=== PATIENT | female | born 1955 | race Caucasian/White ===

== ENCOUNTER 2016-11-21 20:50 | Inpatient (IN) | payer MEDICARE, OTHER ==
[~2016-11-21] VITALS: Ht 177.8 cm; Wt 92.4 kg
--- NOTE | ~2016-11-21 | HEMODYNAMI ---
PATIENT:ABISAI ELY MEDICAL RECORD: [id number] : 53 [id number] ADMISSION DATE: 11/22/16 Generatedon:11/23/20169:09 Patient name: ABISAI ELY Patient #: [id number] SSN: : 1955 Date of study: 11/23/2016 Page: Of Hemodynamic Procedure Report Patient Data Patient Demographics Procedure consent was obtained First Name: ABISAI Gender: Female Last Name: SOLIS : 1955 Patient #: [id number] Age: 61 year(s) Race: Unknown Additional ID: [id number] Contact details [address]: [address] [place] [address] State: [place] City: [place] Zip code: [address] Past Medical History Allergies Allergen Reaction Date Comments Reported Penicillins 11/23/2016 Admission Admission Data Admission Date: 11/22/2016 Admission Time: 0:51 Room #: D.2117 Height (in.): 70 BSA: 2.1 (m2) Height (cm.): 177.8 BMI: 28.99 (kg/m2) Weight (lbs.): 202.01 Weight (kg.): 91.63 Lab Results Lab Result Date: 11/23/2016 Lab Result Time: 0:00 Biochemistry Name Units Result Min Max BUN mg/dl 22 --(----)-* 7 18 Creatinine mg/dl 0.7 --(*---)-- 0.6 1.3 CBC Name Units Result Min Max Hemoglobin g/dl 13 -*(----)-- 13.5 17.5 Procedure Procedure Types Cath Procedure Diagnostic Procedure [facility] w/Coronaries FFR/IVUS Intra-Coronary IVUS Initial PCI Procedure Coronary Stent Initial Miscellaneous Procedures Moderate Sedation up to 30 minutes Procedure Description Procedure Date Procedure Date: 11/23/2016 Procedure Start Time: 8:43 Procedure End Time: 9:00 Procedure Staff Name Function Waqar Pruitt MD Performing Physician Segun ELLISON Scrub Meagan Carney RN Nurse Segun Diaz RT Feed Manager Shiraz Parra RT Monitor Procedure Data Cath Procedure Fluoroscopy Diagnostic fluoroscopy Total fluoroscopy Time: 3.4 time: 3.4 min min Diagnostic fluoroscopy Total fluoroscopy dose: 603 dose: 603 mGy mGy Contrast Material Contrast Material Type Amount (ml) Isovue 300 111 Entry Location Entry Primary Successful Side Size Upsize Upsize Entry Closure Succes sful Closure Location (Fr) 1 (Fr) 2 (Fr) Remarks Device Remarks Femoral Right 5 Fr 6 Fr Exoseal artery Short Diagnostic catheters Device Type Used For End Catheter Placement Cordis 5Fr Pigtail LV Angiography Catheter (MP) Cordis 5Fr JL 4.0 Left Coronary Catheter (MP) Angiography Cordis 5Fr 3DRC Catheter Right Coronary (MP) Angiography Procedure Complications No complications Procedure Medications Medication Administration Route Dosage Versed I.V. 1 mg Heparin Bolus 4000 units Integrilin (Bolus I.V. 8.5 ml 2mg/ml) Fentanyl I.V. 50 mcg Fentanyl I.V. 50 mcg Versed I.V. 1 mg Oxygen NC 2 l/min Heparin Flush Bag added to field 2 bags (1000units/500ml NS) Lidocaine 2% added to field 20 Plavix P.O. 600 mg Hemodynamics Rest BSA: 2.1 (m2) HGB: 13 (g/dl) O2 Consumption: Estimated: 203.7 (ml/min) O2 Consum ption indexed: Estimated:97 (ml/min/m) Heart Rate: 77 (bpm) Snapshots Pre Cath Intra NCS Post Cath Vital Signs Time Heart Resp SPO2 NIBP Rhythm Pain Sedation Rate (ipm) (%) (mmHg) Status Level (bpm) 8:18:11 74 22 96 113/62(87) A-Flutter 0 (11) 10(A) , No pain 8:22:21 83 16 94 126/67(96) A-Flutter 0 (11) 10(A) , No pain 8:26:28 82 14 95 113/64(87) A-Flutter 0 (11) 10(A) , No pain 8:30:42 78 13 95 94/52(70) A-Flutter 0 (11) 10(A) , No pain 8:34:44 76 14 96 91/67(81) A-Flutter 0 (11) 10(A) , No pain 8:38:45 86 16 95 103/66(79) A-Flutter 0 (11) 9(A) , No pain 8:42:51 89 16 96 97/67(76) A-Flutter 0 (11) 9(A) , No pain 8:46:55 73 14 96 105/63(85) A-Flutter 0 (11) 9(A) , No pain 8:51:01 101 14 95 102/61(77) A-Flutter 0 (11) 9(A) , No pain 8:55:08 111 15 96 101/57(94) A-Flutter 0 (11) 9(A) , No pain 8:59:16 69 15 96 106/58(79) A-Flutter 0 (11) 10(A) , No pain Medications Time Medication Route Dose Verified Delivered Reason Notes Effectiveness by by 8:08:25 Oxygen NC 2 Waqar Meagan Per physician l/min Sonal Carney RN 8:08:28 Heparin Flush added 2 Waqar Waqar used for Bag to bags Sonal Pruitt MD procedure (1000units/500ml field NS) 8:08:42 Lidocaine 2% added 20ml Waqar Waqar used for to vial Sonal Pruitt MD procedure field 8:33:00 Versed I.V. 1 mg Waqar Meagan for sedation Sonal Carney RN 8:33:12 Fentanyl I.V. 50 Waqar Meagan for sedation mcg Sonal Carney RN 8:36:04 Fentanyl I.V. 50 Waqar Meagan for sedation mcg Sonal Carney RN 8:36:15 Versed I.V. 1 mg Waqar Meagan for sedation Sonal Carney RN 8:49:31 Heparin Bolus 4000 Waqar Meagan for dose units Sonal Carney RN anticoagulation verified wtih dr pruitt 8:52:07 Integrilin I.V. 8.5 Waqar Meagan for 1.5 ml (Bolus 2mg/ml) ml Sonal Carney RN antiplatelet wasted therapy 9:04:27 Plavix P.O. 600 Waqar Meagan for mg Sonal Carney RN antiplatelet therapy Procedure Log Time Note 8:07:33 Diagnostic Cath status Elective 8:07:36 Segun Diaz RT(R) sent for patient. Start room use. 8:07:38 Time tracking: Regular hours 8:07:44 Plan of Care:Hemodynamics will remain stable., Cardiac rhythm will remain stable., Comfort level will be maintained., Respiratory function will remain adequate., Patient/ family verbilizes understanding of procedure., Procedure tolerated without complication., Recovers from procedure without complications.. 8:08:04 Patient received from Med II to [facility] 2 Alert and oriented. Tansferred to table in Supine position. 8:08:12 Warm blankets applied, and jenae hugger turned on for patient comfort. 8:08:12 Correct patient and procedure confirmed by team. 8:08:15 Signed procedure consent form obtained from patient. 8:08:25 Oxygen 2 l/min NC was given by Meagan Carney RN; Per physician; 8:08:28 Heparin Flush Bag (1000units/500ml NS) 2 bags added to field was given by Waqar Pruitt MD; used for procedure; 8:08:42 Lidocaine 2% 20ml vial added to field was given by Waqar Pruitt MD; used for procedure; 8:09:14 H&P Date Dictated: 11/22/2016 Within 30 days and on chart.. 8:09:15 Pre-procedure instructions explained to patient. 8:09:23 Family unavailable. 8:09:27 Patient NPO since Midnight. 8:10:54 Patient diabetic? No. 8:10:59 Snore? No 8:11:00 Sleep apnea? No 8:11:37 Patient pain scale 7/10 lt shoulder. 8:11:55 IV patent on arrival in right hand with 0.9% NaCl at KVO. 8:12:02 Lab results completed and on chart. 8:12:12 Right Radial & Right Groin area was prepped with chlora-prep and draped in sterile fashion 8:12:14 Alarms reviewed by R. N. 8:12:15 Sharps counted by scrub and verified by R.N. 8:12:17 Physician paged 8:14:07 Patient Height : 177.8 inches 8:14:17 Patient Weight : 91.63 lbs 8:14:59 Lab Result : Hemoglobin 13 g/dl 8:14:59 Lab Result : Creatinine 0.7 mg/dl 8:14:59 Lab Result : BUN 22 mg/dl 8:15:28 ECG and BP/O2 sat monitors applied to patient. 8:17:02 Vital chart was started 8:17:11 Baseline sample Acquired. 8:17:54 Full Disclosure recording started 8:18:27 Rhythm: atrial flutter 8:21:54 Baseline sample Acquired. 8:22:02 Patient allergic to Penicillins 8:22:04 Is the patient allergic to Iodine/contrast media? No. 8:22:07 Is patient on blood thinner?Unknown 8:22:28 pt states that she is not on any blood thinner 8:22:31 ----Pre-sedation anethsthesia assessment.---- 8:22:32 Previous problem with sedation/anesthesia? No ? 8:22:34 Deviated septum? No 8:22:35 Opens mouth fully? Yes 8:22:36 Sticks out tongue? Yes 8:22:37 Airway obstruction? No ? 8:22:40 Dentures? No ? 8:22:43 Pre procedure: right dorsailis pedis pulse 1+ Palpable, but thready & weak; easily obliterated 8:32:52 --------ALL STOP TIME OUT------ 8:32:52 Final Timeout: patient, procedure, and site verified with staff and physician. All members of the team are in agreement. 8:32:55 Right groin site verified by team. 8:32:58 Physical assessment completed. ASA score P 2 - A patient with mild systemic disease as per Waqar Pruitt MD. 8:33:00 Versed 1 mg I.V. was given by Meagan Carney RN; for sedation; 8:33:02 Sedation plan: IV Moderate Sedation Versed, Fentanyl 8:33:12 Fentanyl 50 mcg I.V. was given by Meagan Carney RN; for sedation; 8:36:04 Fentanyl 50 mcg I.V. was given by Meagan Carney RN; for sedation; 8:36:15 Versed 1 mg I.V. was given by Meagan Carney RN; for sedation; 8:42:41 Use device set Femoral Dx 8:42:42 Acist Syringe opened to sterile field. 8:42:44 Bag Decanter opened to sterile field. 8:42:44 Medline Cath Pack opened to sterile field. 8:42:44 Terumo 5Fr [place] Sheath opened to sterile field. 8:42:46 St David 260cm J .035 wire opened to sterile field. 8:42:47 Acist Hand Control opened to sterile field. 8:42:47 Acist Manifold opened to sterile field. 8:42:47 Diagnostic Infinity 5Fr Multipack catheter opened to sterile field. 8:42:48 Tegaderm 4 x 4 opened to sterile field. 8:42:51 Procedure started. 8:43:07 Local anesthetic to right femoral artery with Lidocaine 2% by Waqar Pruitt MD.INITIAL ACCESS ONLY 8:43:15 A 5 Fr sheath was inserted into the Right Femoral artery 8:44:17 A Cordis 5Fr Pigtail Catheter (MP) was advanced over the wire and used for LV Angiography. 8:44:20 LV angiography performed. 8:44:22 LV gram done using TURNER 8:44:23 LV hemodynamics recorded. 8:44:25 Injector settings: Ml/sec: 10, Volume: 20, 8:44:32 EF : 50 % 8:44:34 Catheter removed. 8:44:38 A Cordis 5Fr JL 4.0 Catheter (MP) was advanced over the wire and used for Left Coronary Angiography. 8:45:16 LCA angiography performed. 8:45:19 Catheter removed. 8:46:36 A Cordis 5Fr 3DRC Catheter (MP) was advanced over the wire and used for Right Coronary Angiography. 8:46:47 RCA angiography performed. 8:46:57 Catheter removed. 8:48:43 White Whisper J 300cm 0.014 guide wire opened to sterile field. 8:48:43 Terumo 6Fr [place] Sheath opened to sterile field. 8:48:44 Acosta [place]ag[place] IVUS Catheter opened to sterile field. 8:48:44 ICEX BasixCompak Inflation Kit opened to sterile field. 8:48:44 Medtronic Launcher 6Fr AR 1.0 SH guide catheter opened to sterile field. 8:48:52 Sheath upsized to a 6 Fr Short. 8:49:01 6 Fr AR 1 SH guide catheter was inserted over the wire 8:49:05 WHISPER wire advanced. 8:49:10 FFR/IVUS 8:49:10 IVUS catheter advanced over wire. 8:49:12 IVUS pass to RCA lesion performed. 8:49:31 Heparin Bolus 4000 units was given by Meagan Carney RN; for anticoagulation; dose verified wtih dr pruitt 8:51:12 IVUS catheter removed over wire. 8:52:07 Integrilin (Bolus 2mg/ml) 8.5 ml I.V. was given by Meagan Carney RN; for antiplatelet therapy; 1.5 ml wasted 8:53:04 Inflation Number: 1 A Medtronic Integrity 2.5 x 14 stent was prepped and advanced across the Dist RCA. The stent was deployed at 13 CRYSTAL for 0:10 (min:sec). 8:53:10 Stent catheter was removed intact over wire. 8:54:36 Inflation Number: 1 A Medtronic Integrity 3.5 X 22 stent was prepped and advanced across the Prox RCA. The stent was deployed at 13 CRYSTAL for 0:18 (min:sec). 8:54:46 Stent catheter was removed intact over wire. 8:54:47 Wire removed. 8:54:47 Guide catheter removed. 8:54:57 ACC Post-intervention GREYSON Flow is 3. 8:55:12 Contrast amount:Isovue 300 111ml. 8:55:18 Sheath removed intact; hemostasis achieved with Exoseal to the Right Femoral artery. 8:55:20 Procedure ended.(Physican Out) 8:55:46 Fluoroscopy time 03.40 minutes. 8:55:51 Fluoroscopy dose: 603 mGy 8:55:51 Flurop Dose total: 603 8:55:53 Sharps counted by scrub and verified by R.N. 8:55:53 Insertion/operative site no bleeding no hematoma. 8:55:56 Post-op/insertion site Right Femoral artery dressed using a 4 x 4 and Tegaderm. 8:55:59 Post right femoral artery:stable 8:56:00 Post Procedure Pulses reassessed and unchanged 8:56:02 Post procedure: right dorsailis pedis pulse 1+ Palpable, but thready & weak; easily obliterated. 8:56:07 Post procedure rhythm: atrial fibrillation 8:56:09 Post procedure instruction explained to patient.Patient verbalizes understanding. 8:56:52 Procedure type changed to Cath procedure, Diagnostic procedure, LHC, LHC w/Coronaries, FFR/IVUS, Intra-Coronary IVUS Initial, PCI procedure, Coronary Stent Initial, Miscellaneous Procedures, Moderate Sedation up to 30 minutes 8:57:28 Cordis 6Fr Exoseal opened to sterile field. 8:59:59 Procedure and supply charges have been captured, reviewed, submitted and are correct. 9:00:03 Procedure Complication : No complications 9:00:05 Vital chart was stopped 9:00:06 See physician's report for complete and final results. 9:00:07 Report given to PCU. 9:00:10 Patient transfered to PCU with Bed. 9:00:11 Procedure ended. 9:00:11 Full Disclosure recording stopped 9:00:17 ACC-PCI Only Patient was given prescriptions, or instructed by Waqar Pruitt MD to start/continue the following medications upon discharge: Plavix 9:00:18 End room use (Document Last) 9:04:27 Plavix 600 mg P.O. was given by Meagan Carney RN; for antiplatelet therapy; Intervention Summary Intervention Notes Time ActionType Lesion and Equipment Action# Pressure Duration Attributes Used 8:53:04 Place stent Dist RCA Medtronic 1 13 00:10 Integrity 2.5 x 14 stent 8:54:36 [address] stent Prox RCA Medtronic 1 13 00:18 Integrity 3.5 X 22 stent Device Usage Item Name Manufacture Quantity Catalog Hospital Part Current Minimal L ot# / Number Charge Number Stock Stock Serial# Code Acist Acist 1 [id number] 620408 100626 [id number] 20 Syringe Medical Systems Inc Bag Microtek 1 2002S 248949 02912 763863 5 DecDirectr Inc. Medline Cardinal 1 [id number] 206213 71936 012021 5 Cath Pack Health Terumo 5Fr Terumo 1 [id number] 856905 271620 889011 [address] [facility] 1 277273 738550 901605 035200 30 260cm J .035 wire Acist Hand Acist 1 09334 573766 196842 344430 5 Control Medical Systems Inc Acist Acist 1 83144 106142 068496 102818 5 Manifold Medical Systems Inc Diagnostic Cardinal 1 [id number] 683194 29167 126895 30 Infinity Health 5Fr Multipack catheter Tegaderm 4 3M 1 1626W 570295 016568 176920 5 x 4 Cordis 5Fr Cardinal 1 340892 5 Pigtail Health Catheter (MP) Cordis 5Fr Cardinal 1 131118 5 JL 4.0 Health Catheter (MP) Cordis 5Fr Cardinal 1 755273 5 3DRC Health Catheter (MP) White White 1 [id number] 829566 081172 366417 5 Whisper J Vascular 300cm 0.014 guide wire Terumo 6Fr Terumo 1 [id number] 083185 724219 602555 40 [place] Sheath Acosta Acosta 1 46595G 094352 257996 573805 8 [place]ag[place] IVUS Catheter Merit Merit 1 PC9227 676721 415431 363606 15 Best BidixLEAPIN Digital Keys Medical Inflation Kit Medtronic Medtronic 1 [id number] 914698 01140 690815 1 Launcher 6Fr AR 1.0 SH guide catheter Medtronic Medtronic 1 [id number] 587621 158272 1 0 [id number] Integrity 2.5 x 14 stent Medtronic Medtronic 1 [id number] 455242 275271 1 0 [id number] Integrity 3.5 X 22 stent Cordis 6Fr Cardinal 1 EX600 445349 253316 401649 10 Basic6 Signature Audit [place] Stage Time Signature Unsigned Intra-Procedure 11/23/2016 Shiraz Parra 9:08:57 AM RT(R) Signatures Monitor : Shiraz Parra RT Signature : Date : Time : [facility] [address] [place] [address]
[2016-11-21 21:29] LABS: BASOPHILS 0.2 % (0.0-2.0); EOSINOPHILS 0.1 % (0-7); HEMATOCRIT 42.6 % (36.0-48.0); HEMOGLOBIN 13.9 g/dL (12-16); IMMATURE GRANULOCYTES 0.4 % (0-5); LYMPHOCYTES 14.6 % (15-50); MCH 30.1 pg (26.0-34.0); MCHC 32.6 g/dL (31.0-37.0); MCV 92.2 fL (80.0-100.0); MEAN PLATELET VOLUME 10.1 fL (7.4-10.4); MONOCYTES 6.7 % (2-11); PLATELET COUNT 216 10x3/uL (130-400); RBC 4.62 10x6/uL (4.00-5.40); RDW 13.5 % (11.5-14.5); WBC 14.3 10x3/uL (4.8-10.8)
[2016-11-21 21:54] LABS: ALBUMIN 4.1 g/dL (3.4-5.0); ANION GAP 14.5 mmol/L (8-16); BILIRUBIN - TOTAL 0.32 mg/dL (0.2-1.3); CALCIUM 9.8 mg/dL (8.5-10.1); CARBON DIOXIDE 28.8 mmol/L (21.0-32.0); CREATININE - SERUM 0.9 mg/dL (0.6-1.3); POTASSIUM - SERUM 4.3 mmol/L (3.5-5.1); PROTEIN - SERUM 7.7 g/dL (6.4-8.2)
[2016-11-21 21:59] LABS: APPEARANCE CLEAR (CLEAR); BILIRUBIN NEGATIVE (NEGATIVE); COLOR YELLOW (YELLOW); GLUCOSE NEGATIVE (NEGATIVE); KETONE SMALL mg/dL (NEGATIVE); LEUKOCYTE ESTERASE TRACE (NEGATIVE); NITRITE NEGATIVE (NEGATIVE); PROTEIN TRACE mg/dL (NEGATIVE); SPECIFIC GRAVITY 1.015 (1.005-1.020); UROBILINOGEN NORMAL (NORMAL)
[2016-11-21 22:00] LABS: BACTERIA FEW /hpf (NONE SEEN); EPITHELIAL CELLS 0-5 /hpf (0-5); MUCUS <1+ /lpf (NONE SEEN); RED CELLS - URINE 0-5 /hpf (0-5); WHITE CELLS - URINE 0-5 /hpf (0-5)
--- NOTE | 2016-11-22 02:47 | NUR ---
REC'D FROM ER DEPT PER WC TO ROOM 2219 A 61 Y/O W/FE PER SERVICES DR. ALEMAN WITH DX. ABDOMINAL PAIN NAUSEA/VOMITING. ALLERGY=PCN. SALINE LOCK PATENT LEFT HAND SITE CLEAR. ASSESSMENT PER ADMIT PACKET. STARTED IV FLUIDS OF NS AT 30CC'S/HR. GENERATION TECHNOLOGIST OF MORPHINE STARTED WITH SETTINGS 1MG Q10MIN WITH 10MG Q4HR L/O.
[2016-11-22 03:27] VITALS: BP 116/88; BMI 29.0
--- NOTE | 2016-11-22 04:20 | NUR ---
EYES CLOSED RESPIRATIONS WITH EASE AND UNLABORED.
[2016-11-22 08:40] VITALS: BP 155/63
--- NOTE | 2016-11-22 08:50 | NUR ---
PATIENT'S HR 165. IRREGULAR HEART RATE PER AUSCULTATION. ASKED PATIENT IF SHE IS HAVING CHEST PAIN. SHE SAID "YES, SINCE YESTERDAY I HAVE BEEN HAVING A DULE PAIN IN THE LEFT SIDE OF MY CHEST." CHECKED PATIENT'S OXYGEN SATURAION, 86%, APPLIED OXYGEN VIA NASAL CANNULA AT 2L/MIN.
--- NOTE | 2016-11-22 09:00 | NUR ---
AT THE DESK. SPOKE WITH LOVE.
--- NOTE | 2016-11-22 09:24 | NUR ---
CALLED CHAMP, LANDSCAPE NURSERYMAN NOTIFIED HIM THAT PATIENT HAS AN ORDER TO TRANSFER TO PCU.
--- NOTE | 2016-11-22 09:50 | NUR ---
RECIEVED PT TO ROOM 2116 VIA BED C/O NAUSEAD AFIB WITH RVR RATE 165 ORDERS FOR CARDIZEM GTT
[2016-11-22 10:20] LABS: CKMB 2.1 U/L (0.0-3.6); CREATINE KINASE 81 UL (21-215)
[2016-11-22 10:22] LABS: TROPONIN-I < 0.017 ng/mL (0.000-0.060)
[2016-11-22 10:38] LABS: BASOPHILS 0.1 % (0.0-2.0); CALC OSMOLALITY 285 mosm/kg (275-300); CALCIUM 9.5 mg/dL (8.5-10.1); CARBON DIOXIDE 31.5 mmol/L (21.0-32.0); CHLORIDE - SERUM 102 mmol/L (98-107); CREATININE - SERUM 0.7 mg/dL (0.6-1.3); EOSINOPHILS 0 % (0-7); GLUCOSE 128 mg/dL (74-106); HEMATOCRIT 42.1 % (36.0-48.0); HEMOGLOBIN 13.5 g/dL (12-16); IMMATURE GRANULOCYTES 0.2 % (0-5); LYMPHOCYTES 7.5 % (15-50); MCHC 32.1 g/dL (31.0-37.0); MCV 93.6 fL (80.0-100.0); MEAN PLATELET VOLUME 10.6 fL (7.4-10.4); MONOCYTES 6.4 % (2-11); NEUTROPHILS 85.8 % (40-80); PLATELET COUNT 198 10x3/uL (130-400); POTASSIUM - SERUM 4.6 mmol/L (3.5-5.1); RDW 13.6 % (11.5-14.5); SODIUM 141 mmol/L (136-145); UREA NITROGEN 20 mg/dL (7-18); WBC 14.9 10x3/uL (4.8-10.8); eGFR NON AFRICAN AMERICAN 90 mL/min (90-120)
[2016-11-22 15:49] LABS: CKMB 1.9 U/L (0.0-3.6); CREATINE KINASE 63 UL (21-215); TROPONIN-I 0.018 ng/mL (0.000-0.060)
[2016-11-22 16:00] VITALS: BP 98/46
--- NOTE | 2016-11-22 19:25 | NUR ---
INITIAL ROUNDS MADE. PT SITTING UP IN BED WATCHING TV WITH FAMILY IN ROOM. DISCUSSED PLAN OF CARE AND NPO AFTER [facility] FOR [facility] IN AM. QUESTIONS ANSWERED. DENIES NEEDS OR C/O AT THIS TIME.
[2016-11-22 20:00] VITALS: BP 96/61
[2016-11-22 21:41] LABS: CKMB 1.7 U/L (0.0-3.6); CREATINE KINASE 54 UL (21-215)
[2016-11-22 21:45] LABS: TROPONIN-I < 0.017 ng/mL (0.000-0.060)
[2016-11-23] VITALS (11 sets, daily range): BP systolic 81–125; BP diastolic 46–85
--- NOTE | 2016-11-23 00:38 | NUR ---
PHOTO MASK INSPECTOR AT BEDSIDE FOR VS, NEEDS ADDRESSED. CALL LIGHT IN REACH. WILL CONT TO MONITOR.
[2016-11-23 05:15] LABS: BASOPHILS 0.1 % (0.0-2.0); EOSINOPHILS 0.3 % (0-7); HEMATOCRIT 42.1 % (36.0-48.0); IMMATURE GRANULOCYTES 0.4 % (0-5); LYMPHOCYTES 9.7 % (15-50); MCH 29.5 pg (26.0-34.0); MCHC 30.9 g/dL (31.0-37.0); MCV 95.5 fL (80.0-100.0); MEAN PLATELET VOLUME 10.4 fL (7.4-10.4); MONOCYTES 8.4 % (2-11); NEUTROPHILS 81.1 % (40-80); PLATELET COUNT 173 10x3/uL (130-400); RBC 4.41 10x6/uL (4.00-5.40); RDW 13.7 % (11.5-14.5); WBC 15.9 10x3/uL (4.8-10.8)
[2016-11-23 05:40] LABS: CALC OSMOLALITY 280 mosm/kg (275-300); CALCIUM 9.2 mg/dL (8.5-10.1); CARBON DIOXIDE 32.5 mmol/L (21.0-32.0); CHLORIDE - SERUM 102 mmol/L (98-107); CREATININE - SERUM 0.7 mg/dL (0.6-1.3); GLUCOSE 131 mg/dL (74-106); POTASSIUM - SERUM 4.4 mmol/L (3.5-5.1); SODIUM 138 mmol/L (136-145); UREA NITROGEN 22 mg/dL (7-18); eGFR NON AFRICAN AMERICAN 90 mL/min (90-120)
--- NOTE | 2016-11-23 06:30 | NUR ---
RESTING WELL, WATCHING TV. DENIES NEEDS, CONT TO MONITOR.
--- NOTE | 2016-11-23 07:30 | NUR ---
RECEIVED PT IN BED AAOX 4 RESP UNLABOREED SKIN W/D COLOR WNL O2 ON 2LPM NC IV OF CARDIZEM INFUSING WITHOUT DIFFICULTY TO LT HAND NS PATENT TO RT WRIST AT 75 ML/HR WITHOUT DIFFICULTY BOTH IV SITES NOTED WITH DRSG INTACT NO REDNESS OR EDEMA PT C/O NAUSEA
--- NOTE | 2016-11-23 07:52 | NUR ---
PT PREOP FOR SENIOR WATER/WASTEWATER ENGINEER TO SENIOR WATER/WASTEWATER ENGINEER VIA BED IN STABLE CONDITION
--- NOTE | 2016-11-23 08:23 | HP ---
PATIENT: ABISAI ELY MEDICAL RECORD: [id number] ACCOUNT: [id number] LOCATION:[facility] D2117 : 53 ADMISSION DATE: 11/22/16 HISTORY AND PHYSICAL EXAMINATION DATE OF ADMISSION: 11/22/2016. ADMITTING PHYSICIAN: Tia Aleman MD. CHIEF COMPLAINT: Abdominal pain and vomiting. HISTORY OF PRESENT ILLNESS: This is a 61-year-old female who presented to the ER this morning with acute onset of abdominal pain, persistent nausea and vomiting. The patient states the pain started acutely several days ago, and was getting progressively worse. The pain has been constant, does not migrate, it is focused in the left upper quadrant, associated with nausea and vomiting. She denies any fever or chills. Denies any diarrhea or constipation. The patient denies any melena or hematochezia. She denies any hematemesis. She was admitted to the hospital for pain control and treatment of her nausea. Shortly after being admitted to the hospital, she develops tachycardia, which showed AFib with rapid ventricular response and a heart rate in the 170s as well as ST segment changes. The patient denies any previous history of AFib. PAST MEDICAL HISTORY: None. PAST SURGICAL HISTORY: None. ALLERGIES: PENICILLIN. FAMILY HISTORY: No history of heart disease or diabetes. SOCIAL HISTORY: She is a current every day smoker for the last 30 years. REVIEW OF SYSTEMS: A 12-point review of systems is obtained, pertinent positive and negative as per the HPI. PHYSICAL EXAMINATION: VITAL SIGNS: Temperature 98.4, heart rate 88, respiratory rate 18, blood pressure 98/46, and saturating 97% on 3 liters nasal cannula. GENERAL: This is a well-developed, well-nourished female in moderate distress. PSYCHIATRIC: She is alert and oriented times 3. EYES: Extraocular muscles are intact. EAR, NOSE, AND THROAT: Normal dentition. PULMONARY: Clear to auscultation bilaterally. CARDIOVASCULAR: She is irregularly irregular. No murmur. ABDOMEN: Soft and mildly distended. She is tender to palpation in the left lower quadrant. No guarding. No rebound. No palpable hernia defect. SKIN: Warm and dry with normal turgor. EXTREMITIES: She is neurovascularly intact. No peripheral edema. NEUROLOGIC: She has a GCS of 15 with no focal deficits. LABORATORY DATA: Please import the full list of lab values in the electronic medical record. CT of the abdomen and pelvis images were personally reviewed, no significant finding ____ large splenic infarct. HISTORY AND PHYSICAL [id number] ABISAI ELY IMPRESSION: A 61-year-old female with: 1. Splenic infarct. 2. Abdominal pain. 3. Intractable nausea and vomiting. 4. Atrial fibrillation with rapid ventricular response. PLAN: 1. Admit to med/surg. 2. IV fluid resuscitation. 3. IV narcotics for pain control. 4. IV antiemetics. 5. Cardiology consultation for atrial fibrillation with rapid ventricular response. 6. Chest x-ray, EKG and cardiac enzymes. 7. Echocardiogram. 8. To transfer the patient to med-surg and place on telemetry. Coreg is started. Cardiology saw the patient with Adonay moody at this time. TRANSINT:[id number] Voice Confirmation ID: [id number] DOCUMENT ID: [id number] TIA ALEMAN MD at 0823 CC: [id number] DICTATION DATE: 11/22/162130 PROFILING MACHINE SET UP OPERATOR TOOL: 11/22/16 230 ADM IN [facility] [address] [place] [address]
--- NOTE | 2016-11-23 09:20 | NUR ---
RECEIVED PT BACK TO ROOM FROM DOOR WORKER JANIE C/D/I TO RT JOANN VSAxel NAD NOTED
--- NOTE | 2016-11-23 11:47 | NUR ---
Patient Name: ABISAI ELY Admission Status: ER Accout number: [id number] Admission Date: 11-22-2016 : 1955 Admission Diagnosis: Attending: JOÃO Current LOS: 1 Anticipated DC Date: 11-23-2016 Planned Disposition: Home Primary Insurance: MEDICARE A & B Discharge Planning Comments: * Is the patient Alert and Oriented? Yes 0 * How many steps to enter\exit or inside your home? NONE 0 * PCP DR. JORDY SOARES 0 * Pharmacy [facility] 0 * Preadmission Environment Home Alone 0 * ADLs Independent 0 * Equipment None 0 * Other Equipment NONE 0 * List name and contact numbers for known caregivers / representatives who currently or will assist patient after discharge: TONI VEGA, FRIEND, 0 * Community resources currently utilized None 0 * Please name any agencies selected above. NONE 0 * Additional services required to return to the preadmission environment? No 0 * Can the patient safely return to the preadmission environment? Yes 0 * Has this patient been hospitalized within the prior 30 days at any hospital? No 0 CM MET WITH PT IN ROOM TO DISCUSS DISCHARGE PLANNING AND NEEDS. PT REPORTS LIVING AT HOME INDEPENDENTLY AND ALONE. PT HAS NO MEDICAL EQUIPMENT AND NO OUTSIDE SERVICES ASSISTING IN THE HOME. CM DISCUSSED AVAILABILITY OF HOME HEALTH, REHAB SERVICES AND MEDICAL EQUIPMENT. PT DENIES DISCHARGE NEEDS, REPORTS SHE WILL CALL A FRIEND TO PICK HER UP FOR DISCHARGE HOME. Race Car Mechanic: Javad Johnson
--- NOTE | 2016-11-23 23:13 | NUR ---
INITIAL ROUNDS MADE. PT LYING IN BED WATCHING TV. RIGHT GROIN STABLE. VSS. DENIES NEEDS OR C/O AT THIS TIME. WILL CONT TO MONITOR. CALL LIGHT IN REACH.
--- NOTE | 2016-11-23 23:29 | NUR ---
DIRECTOR OF SURGERY AT BEDSIDE FOR VS. NEEDS ADDRESSED AT THIS TIME. CALL LIGHT IN REACH. CRISTINA CONT TO MONITOR.
[2016-11-24] VITALS: BP 103/56
[2016-11-24 04:00] VITALS: BP 86/44
[2016-11-24 05:56] LABS: BASOPHILS 0.1 % (0.0-2.0); EOSINOPHILS 0.3 % (0-7); HEMATOCRIT 40.8 % (36.0-48.0); HEMOGLOBIN 13.2 g/dL (12-16); IMMATURE GRANULOCYTES 0.3 % (0-5); LYMPHOCYTES 11.3 % (15-50); MCHC 32.4 g/dL (31.0-37.0); MCV 95.8 fL (80.0-100.0); MEAN PLATELET VOLUME 10.5 fL (7.4-10.4); MONOCYTES 8.9 % (2-11); NEUTROPHILS 79.1 % (40-80); PLATELET COUNT 151 10x3/uL (130-400); RBC 4.26 10x6/uL (4.00-5.40); RDW 13.2 % (11.5-14.5); WBC 14.8 10x3/uL (4.8-10.8)
[2016-11-24 06:22] LABS: CALC OSMOLALITY 275 mosm/kg (275-300); CALCIUM 9.1 mg/dL (8.5-10.1); CARBON DIOXIDE 35.2 mmol/L (21.0-32.0); CHLORIDE - SERUM 100 mmol/L (98-107); CREATININE - SERUM 0.8 mg/dL (0.6-1.3); GLUCOSE 95 mg/dL (74-106); SODIUM 137 mmol/L (136-145); UREA NITROGEN 17 mg/dL (7-18); eGFR NON AFRICAN AMERICAN 77 mL/min (90-120)
--- NOTE | 2016-11-24 06:39 | NUR ---
RESTING WELL WITH EYES CLOSED, CONT TO MONITOR.
[2016-11-24 08:05] VITALS: BP 96/47
--- NOTE | 2016-11-24 09:18 | NUR ---
TELEMETRY AF. HR 103. IV PATENT. CALL LIGHT IN REACH. WILL CONT. PLAN OF CARE.
--- NOTE | 2016-11-24 12:42 | NUR ---
DIG 0.5 MG GIVEN IVP FOR HR 129UCAF. WILL MONITOR.
[2016-11-24 13:45] VITALS: Ht 177.8 cm; Wt 92.4 kg
--- NOTE | 2016-11-24 14:57 | NUR ---
Patient Name: ABISAI ELY Encounter No: [id number] : 1955 Primary Insurance: MEDICARE A & B Anticipated DC Date: 11-25-2016 Planned Disposition: Home DCP follow-up note: CM RECEIVED REQUEST FROM DR. ALEMAN TO SPEAK TO PT TO ENSURE THAT SHE CAN OBTAIN HER PRESCRIPTION OF ELIQUIS UPON DISCHARGE. CM MET WITH PT IN ROOM AND DISCUSSED NEED FOR NEW MEDICATION; PT REPORTS HAVING FOR HER MEDICATION COVERAGE AND POINTED OUT SOMEONE HAD ALREADY LEFT HER A BROWN BAG WITH ELIQUIS SAMPLES. INSIDE THE BAG WERE 4 BOXES, 14 COUNT ELIQUIS AND A 30 DAY FREE PRESCRIPTION CARD FOR ELIQUIS. CM ALSO PROVIDED PT WITH A $10 ELIQUIS COPAY CARD IN CASE SHE DOES NOT HAVE INSURANCE SHE BELIEVES. PT DENIES DISCHARGE NEEDS AND REPORTS SHE WILL HAVE A FRIEND TO PICK HER UP AT DISCHARGE TOMORROW. CM PROVIDED AND DISCUSSED IMPORTANT MESSAGE FROM MEDICARE. CM TO FOLLOW AND ASSIST IF NEEDED. Javad Johnson, CASE MANAGEMENT
[2016-11-24 15:22] VITALS: BP 131/75
--- NOTE | 2016-11-24 19:41 | NUR ---
RESUMED CARE OF PT, LYING IN BED RESPIRATIONS EVEN AND UNLABORED ON 3LPM VIA NC. 76 CAF ON TELEMETRY. RIGHT GROIN WNL. NO NEEDS VOICED AT THIS TIME. CALL LIGHT IN REACH. WILL CONTINUE TO MONITOR. SEE NURSE ASSESSMENT.
[2016-11-24 20:00] VITALS: BP 118/67
[2016-11-25] VITALS: BP 83/41
--- NOTE | 2016-11-25 01:08 | NUR ---
60 SR ON TELEMETRY.
--- NOTE | 2016-11-25 01:09 | NUR ---
BACK TO CAF 97.
--- NOTE | 2016-11-25 01:28 | NUR ---
DR. REGALADO NOTIFIED OF GREATER THAN 15 SECOND PAUSE. NEW ORDERS OBTAINED.
[2016-11-25 04:00] VITALS: BP 104/37
[2016-11-25 06:26] LABS: BASOPHILS 0.2 % (0.0-2.0); EOSINOPHILS 0.4 % (0-7); HEMATOCRIT 40.6 % (36.0-48.0); IMMATURE GRANULOCYTES 0.2 % (0-5); LYMPHOCYTES 15.5 % (15-50); MCH 30.2 pg (26.0-34.0); MCV 94.2 fL (80.0-100.0); MEAN PLATELET VOLUME 10.5 fL (7.4-10.4); MONOCYTES 9.7 % (2-11); PLATELET COUNT 152 10x3/uL (130-400); RBC 4.31 10x6/uL (4.00-5.40); RDW 12.8 % (11.5-14.5); WBC 11.6 10x3/uL (4.8-10.8)
--- NOTE | 2016-11-25 06:26 | NUR ---
NO CHANGES FROM PREVIOUS ASSESSMENT, CALL LIGHT IN REACH. WILL CONTINUE TO WITH PLAN OF CARE.
[2016-11-25 06:46] LABS: CALC OSMOLALITY 268 mosm/kg (275-300); CALCIUM 8.8 mg/dL (8.5-10.1); CARBON DIOXIDE 32.4 mmol/L (21.0-32.0); CHLORIDE - SERUM 97 mmol/L (98-107); CREATININE - SERUM 0.7 mg/dL (0.6-1.3); GLUCOSE 115 mg/dL (74-106); POTASSIUM - SERUM 3.8 mmol/L (3.5-5.1); SODIUM 134 mmol/L (136-145); UREA NITROGEN 13 mg/dL (7-18); eGFR NON AFRICAN AMERICAN 90 mL/min (90-120)
[2016-11-25 08:00] VITALS: BP 101/61
--- NOTE | 2016-11-25 09:51 | NUR ---
TELEMETRY CAF. RESP UL ON . CALL LIGHT IN REACH. WILL CONT. PLAN OF CARE.
[2016-11-25 11:23] VITALS: BP 105/61
[2016-11-25 15:28] VITALS: BP 89/53
--- NOTE | 2016-11-25 17:44 | NUR ---
UP AMBULATING HALLWAY. GAIT STEADY.
--- NOTE | 2016-11-25 19:36 | NUR ---
RESUMED CARE OF PT, LYING IN BED RESPIRATIONS EVEN AND UNLABORED ON ROOM AIR. 90 CAF ON TELEMETRY. RIGHT WRIST INFUSING NS @ 10. NO NEEDS VOICED AT THIS TIME. CALL LIGHT IN REACH. WILL CONTINUE TO MONITOR. SEE NURSE ASSESSMENT.
[2016-11-25 20:00] VITALS: BP 119/68
[2016-11-26] VITALS: BP 98/58
--- NOTE | 2016-11-26 03:36 | NUR ---
NAIL TECH AT BEDSIDE TO OBTAIN VITALS, CALL LIGHT IN REACH. WILL CONTINUE WITH PLAN OF CARE.
[2016-11-26 04:00] VITALS: BP 89/56
[2016-11-26 06:14] LABS: BASOPHILS 0.2 % (0.0-2.0); EOSINOPHILS 0.8 % (0-7); HEMATOCRIT 42.3 % (36.0-48.0); HEMOGLOBIN 13.8 g/dL (12-16); IMMATURE GRANULOCYTES 0.3 % (0-5); LYMPHOCYTES 20.7 % (15-50); MCH 30.3 pg (26.0-34.0); MCHC 32.6 g/dL (31.0-37.0); MEAN PLATELET VOLUME 10.3 fL (7.4-10.4); MONOCYTES 10.3 % (2-11); NEUTROPHILS 67.7 % (40-80); RBC 4.55 10x6/uL (4.00-5.40); WBC 11.1 10x3/uL (4.8-10.8)
[2016-11-26 06:17] LABS: PLATELET COUNT 189 10x3/uL (130-400)
[2016-11-26 06:39] LABS: ALBUMIN 3.1 g/dL (3.4-5.0); ALKALINE PHOSPHATASE 73 U/L (46-116); ALT (SGPT) 15 U/L (10-68); BILIRUBIN - TOTAL 0.42 mg/dL (0.2-1.3); CALC OSMOLALITY 277 mosm/kg (275-300); CALCIUM 9.9 mg/dL (8.5-10.1); CARBON DIOXIDE 34.8 mmol/L (21.0-32.0); CHLORIDE - SERUM 101 mmol/L (98-107); CREATININE - SERUM 0.7 mg/dL (0.6-1.3); GLUCOSE 102 mg/dL (74-106); POTASSIUM - SERUM 3.9 mmol/L (3.5-5.1); PROTEIN - SERUM 7.2 g/dL (6.4-8.2); SODIUM 139 mmol/L (136-145); UREA NITROGEN 12 mg/dL (7-18); eGFR NON AFRICAN AMERICAN 90 mL/min (90-120)
[2016-11-26 09:09] VITALS: BP 84/54
--- NOTE | 2016-11-26 09:28 | NUR ---
TELEMETRY FLUTTER. HR 91. ENAMA GIVEN BY NS WITH GOOD RESULTS. WILL CONT. PLAN OF CARE.
[2016-11-26 12:38] VITALS: BP 91/67
--- NOTE | 2016-11-26 13:26 | NUR ---
Nutrition follow-up: Diet: low sodium PO intake ~50% of meals Still with abdominal pain Labs reviewed Wt: 203# Will provide food choices and honor food preferences. RDN following.
[2016-11-26] MEDS ORDERED: PLAVIX75 MG PO (13:27)
[2016-11-26] MEDS ORDERED: BETAPACE 80 MG80 MG PO (13:27)
[2016-11-26] MEDS ORDERED: LANOXIN250 MCG PO (13:27)
[2016-11-26] MEDS ORDERED: ELIQUIS5 MG PO (13:27)
[2016-11-26] MEDS ORDERED: NORCO 7.5/325 T1 TA1 PO (13:27)
[2016-11-26] MEDS ORDERED: MIRALAX17 GM PO (13:28)
[2016-11-26] MEDS ORDERED: VIBRAMYCIN 100100 MG PO (13:34)
--- NOTE | 2016-11-26 15:14 | NUR ---
TELEMETRY DCD. DC PLANS GIVEN. UNDERSTANDING VOICED. ESCORTED TO CAR BY W/C.
--- NOTE | 2016-11-29 10:08 | EC ---
PATIENT:ABISAI ELY DATE OF SERVICE: 11/22/16 SEX: F MEDICAL RECORD: [id number] DATE OF : 53 LOCATION:D. D.211 AGE OF PATIENT: 61 ADMISSION DATE: 11/22/16 REFERRING PHYSICIAN: INTERPRETING PHYSICIAN: GORAN PRUITT MD ECHOCARDIOGRAM REPORT ECHO CHARGES 4 ECHO COMPLETE CLINICAL DIAGNOSIS: TACHYCARDIA/A-FIB ECHOCARDIOGRAPHIC MEASUREMENTS (adult normal given) AC root (d.<3.7cm) 2.6 LV Septum d (<1.2 cm> 1.2 Valve Excursion 1.8 LV Septum (systole) 1.6 Left Atria (s.<4.0cm> 2.8 LVPW d(<1.2cm) 1.2 RV (d.<2.3cm) 2.4 LVPW (sytole) 1.6 LV diastole(<5.6CM) 3.9 MV E-F(>70mm/sec) LV systole 2.4 LVOT Diameter 1.6 MV exc.(>10mm) Est.ejection fraction (50-75%) Pericardial Effusion N DOPPLER: LVIT A E 127 LA RVSP 46.0 LVOT 105 AOP1/2T Asc. Ao 125 RVOT 67.0 RA PA 80.0 AV Gradient Peak 6.2 AV Mean 3.0 AV Area 1.6 MV Gradient Peak 7.7 MV Mean 4.0 MV Area COMMENTS: [employer] Bever[employer] Server: Moustapha VÁSQUEZOE Dredge Pipeman:Moustapha Pruitt TAPE# PACS DATE OF SERVICE: 11/22/2016 FINDINGS: 1. Left ventricular chamber size is within normal limits. Left ventricular systolic function is normal. Overall ejection fraction estimated at 50%. 2. Left atrium, right atrium, and right ventricular chamber sizes are within normal limits. 3. Valvular structures have normal structure and motion. 4. Doppler interrogation reveals moderate mitral regurgitation, moderate tricuspid regurgitation, no other valvular insufficiency or stenosis. Pulmonary ECHOCARDIOGRAM REPORT [id number] ABISAI ELY systolic pressure is elevated, estimated at 46 mmHg. 5. No evidence of pericardial effusion or left ventricular thrombus. TRANSINT:[id number] Voice Confirmation ID: [id number] DOCUMENT ID: [id number] GORAN PRUITT MD at 1008 CC: [id number] DICTATION DATE: 11/23/16 0755 [employer] FACTORY WORKER: 11/23/16 0834 DIS IN 11/26/16 [facility] [address] [place] [id number]
--- NOTE | 2016-11-29 10:08 | OP ---
PATIENT NAME: ABISAI ELY MEDICAL RECORD: [id number] :53 LOCATION:D.M2 D.2117 ADMISSION DATE:11/22/16 SURGEON: GORAN RED MD DATE OF OPERATION: 11/23/2016 PROCEDURES: 1. PTCA stent RCA. 2. Intravascular ultrasound RCA. 3. Left heart catheterization. 4. Selective coronary angiography. 5. Left ventriculogram. INDICATION: Angina, atrial fibrillation, coronary artery disease. PROCEDURE IN DETAIL: After informed consent was obtained and after a detailed explanation of the risks, benefits as well as alternative therapies, the patient elected to proceed with angiogram and angioplasty. The right femoral area was prepped and draped in normal sterile fashion. The right femoral artery was cannulated via modified Seldinger technique with placement of 6-Estonian sheath. All catheters exchanged through this sheath. FINDINGS: The left ventriculogram was performed in standard 30-degree TURNER view, reveals good cardiac wall motion throughout all segments. Overall ejection fraction estimated at 60%. SELECTIVE CORONARY ANGIOGRAPHY: 1. Left main showed no significant angiographic disease. 2. Left anterior descending has mild irregularities, but no flow-limiting stenosis. 3. The left circumflex shows moderate irregularities, but no flow-limiting stenosis. 4. Right coronary has 80% stenosis proximally and distally confirmed by intravascular ultrasound throughout. PTCA STENT OF THE RCA: The stent used distally is a 2.5 x 14 mm Integrity and the proximal vessel of 3.5 x 22 mm Integrity. Result was 0% residual stenosis. OVERALL IMPRESSION: Successful percutaneous transluminal coronary angioplasty stent of the right coronary artery going from 80% initial stenosis times 2 to 0% residual stenosis. TRANSINT:[id number] Voice Confirmation ID: [id number] DOCUMENT ID: [id number] GORAN RED MD at 1008 CC: [id number] DICTATION DATE: 11/23/16 09 SPOKE MAKER: 11/23/16 1001 DIS IN 11/26/16 [place] [id number]
== END 2016-11-26 15:15 | disposition home or self-care (01) | DRG 249 ==
LOC: D.ER 20:50 → D.M2 11-22 00:51 → D.MS 11-22 00:51 → D.M2 11-22 09:42
PROVIDERS: Family Medicine; Family Medicine Adult Medicine; Internal Medicine Interventional Cardiology; ADMIT Surgery
PROC: B2111ZZ Fluoroscopy of Multiple Coronary Arteries using Low Osmolar Contrast (ICD-10-PCS; 2016-11-23)
PROC: B2151ZZ Fluoroscopy of Left Heart using Low Osmolar Contrast (ICD-10-PCS; 2016-11-23)
PROC: B240ZZ3 Ultrasonography of Single Coronary Artery, Intravascular (ICD-10-PCS; 2016-11-23)
PROC: 02703EZ Dilation of Coronary Artery, One Artery with Two Intraluminal Devices, Percutaneous Approach (ICD-10-PCS; principal; 2016-11-23 11:00)
PROC: 4A023N7 Measurement of Cardiac Sampling and Pressure, Left Heart, Percutaneous Approach (ICD-10-PCS; 2016-11-23 11:00)
DX: I25.119 Atherosclerotic heart disease of native coronary artery with unspecified angina pectoris (principal); F17.203 Nicotine dependence unspecified, with withdrawal; D73.5 Infarction of spleen; I48.91 Unspecified atrial fibrillation

== ENCOUNTER 2017-01-08 10:52 | Emergency (ER) | payer MEDICARE, OTHER ==
[2016-11-24 13:45] VITALS: BMI 29.1
--- NOTE | ~2017-01-08 | CN ---
PATIENT NAME:ABISAI ELY MEDICAL RECORD: [id number] : 53 LOCATION:D.ER ADMIT DATE: ACCOUNT: [id number] CONSULTING PHYSICIAN: GORAN RED MD REFERRING PHYSICIAN: RUDY JACKSON MD DATE OF CONSULTATION: 01/08/2017 Cardiology Consultation DIAGNOSES: 1. Symptomatic bradycardia. 2. Sick sinus syndrome. 3. Recent atrial fibrillation, status post cardioversion. 4. Coronary artery disease. 5. Status post recent PTCA stent RCA. 6. Eliquis and Plavix anticoagulation. HISTORY OF PRESENT ILLNESS: Mrs. Ely presents with chest pain, shortness of breath and dizziness. She presented to our office with similar symptomatology last week. She was on sotalol and digoxin, told to stop the sotalol. She remains in sinus rhythm; however, she is bradycardic in the 30s still. She did undergo cardioversion from atrial fibrillation. At that time, she was started on sotalol, digoxin. She had coronary artery disease and she underwent PTCA stent of the RCA. She has no ST-T changes on her EKG. PHYSICAL EXAMINATION: GENERAL APPEARANCE: Well-nourished, well-developed, appears stated age. Level of distress, comfortable. PSYCHIATRIC: Mental status, alert, normal affect. Orientation, oriented to time, place and person. EYES: Lids and conjunctiva, noninjected. No discharge, no pallor. ENT: Lips, teeth, gums, normal dentition. Oropharynx, no cyanosis, no pallor. NECK: Carotid arteries, bilateral normal upstroke, no bruits, no thrills. JUGULAR VEINS: No jugular venous pressure or distention. CERVICAL LYMPH NODES: Nontender, nonenlarged. THYROID: Not enlarged. Nontender. No nodules. LUNGS: Respiratory effort, unlabored. CHEST: Normal curvature. No thoracic deformity. No chest wall tenderness. Percussion, resonant. Auscultation, clear. No wheezes, no rales, no rhonchi. CARDIOVASCULAR: Precordial exam, nondisplaced. No heaves or pericardial thrills. Rate and rhythm, regular. Heart sounds, normal S1, normal S2. No S3, no gallop, no rub. Systolic murmur, not heard. Diastolic murmur, not heard. EXTREMITIES: No cyanosis, no edema. Peripheral pulses, full and equal in all extremities, except as noted. No bruits appreciated. ABDOMEN: Soft, nondistended. Normal aorta. No bruit. Nontender. No masses. Liver, nontender, no hepatomegaly. Spleen, nontender, no splenomegaly. MUSCULOSKELETAL: No joint tenderness. No joint swelling. No erythema. NEUROLOGICAL: Normal gait, normal strength, normal tone. SKIN: Warm and dry. REVIEW OF SYSTEMS: The patient reports easy bruising but reports no swollen glands. The patient reports no fever, no night sweats, no significant weight gain, no significant weight loss. No significant exercise tolerance. The patient reports no dry eyes, no irritation, no vision change. Patient reports no difficulty hearing and no ear pain. Patient reports no frequent nose bleeds CONSULT REPORT [id number] ABISAI ELY or nose and sinus problems. Patient reports on arm pain on exertion. No shortness of breath while lying down. No history of heart murmur. Patient reports no cough, no wheezing or coughing up blood. Patient reports no abdominal pain, no vomiting. Normal appetite. No diarrhea and not vomiting blood. No nausea and no constipation. Patient reports no incontinence. No difficulty urinating. No hematuria. No increased frequency. Patient reports no muscle aches. No weakness, no arthralgias, no back pain. No swelling of the extremities. Patient reports no abnormal mole, no jaundice, no rashes. Reports no loss of consciousness. No weakness and no numbness. No seizures, dizziness, or headaches. The patient reports no depression, no sleep disturbance, feeling safe in a relationship and no alcohol abuse. Patient reports on fatigue. Reports no runny nose or sinus pressure. No itching, no hives, and no frequent sneezing. OVERALL IMPRESSION: There is still symptomatic bradycardia. We will discontinue the digoxin and discontinue the Eliquis at this time, only have her on aspirin and Plavix. We will see her back in the office next week. If she remains bradycardic, permanent pacemaker will be undertaken. TRANSINT:[id number] Voice Confirmation ID: [id number] DOCUMENT ID: [id number] GORAN RED MD CC: [id number] DICTATION DATE: 01/08/17 1146 OTR REFRIGERATED CDL TRUCK DRIVER: 01/08/17 1210 [facility] [address] [place] [address]
[~2017-01-08 10:52] MED LIST: BETAPACE 80 MG80 MG PO; ELIQUIS5 MG PO; LANOXIN250 MCG PO; MIRALAX17 GM PO; NORCO 7.5/325 T1 TA1 PO; PLAVIX75 MG PO; VIBRAMYCIN 100100 MG PO
== END 2017-01-08 13:00 | disposition home or self-care (01) ==
LOC: D.ER 10:52
DX: R07.89 Other chest pain (principal); R06.02 Shortness of breath; R00.1 Bradycardia, unspecified

== ENCOUNTER 2017-02-04 01:46 | Inpatient (IN) | payer MEDICARE, OTHER ==
[2017-02-04] VITALS (19 sets, daily range): BP systolic 94–153; BP diastolic 41–96; Ht 177.8 cm; Wt 92.5 kg
[~2017-02-04] VITALS: Ht 177.8 cm; Wt 92.5 kg
[2017-02-04 02:06] LABS: BASOPHILS 0.2 % (0-2); EOSINOPHILS 0.3 % (0-7); HEMATOCRIT 40.2 % (36.0-48.0); HEMOGLOBIN 12.8 g/dL (12-16); IMMATURE GRANULOCYTES 0.2 % (0-5); LYMPHOCYTES 20.6 % (15-50); MCH 29.8 pg (26.0-34.0); MCHC 31.8 g/dL (31.0-37.0); MCV 93.5 fL (80.0-100.0); MEAN PLATELET VOLUME 10.2 fL (7.4-10.4); MONOCYTES 7.5 % (2-11); NEUTROPHILS 71.2 % (40-80); RDW 13.5 % (11.5-14.5); WBC 9.9 10x3/uL (4.8-10.8)
[2017-02-04 02:08] LABS: PLATELET COUNT 241 10x3/uL (130-400)
[2017-02-04 02:26] LABS: ALBUMIN 3.4 g/dL (3.4-5.0); ALKALINE PHOSPHATASE 87 U/L (46-116); ALT (SGPT) 18 U/L (10-68); BILIRUBIN - TOTAL 0.26 mg/dL (0.2-1.3); CALC OSMOLALITY 282 mosm/kg (275-300); CALCIUM 9.1 mg/dL (8.5-10.1); CARBON DIOXIDE 25.5 mmol/L (21.0-32.0); CHLORIDE - SERUM 103 mmol/L (98-107); CREATININE - SERUM 0.8 mg/dL (0.6-1.3); POTASSIUM - SERUM 3.7 mmol/L (3.5-5.1); SODIUM 138 mmol/L (136-145); UREA NITROGEN 20 mg/dL (7-18); eGFR NON AFRICAN AMERICAN 77 mL/min (90-120)
[2017-02-04 02:27] LABS: GLUCOSE 167 mg/dL (74-106)
[2017-02-04 02:49] LABS: PRO BNP 509 pg/mL (0-125); TROPONIN-I < 0.017 ng/mL (0.000-0.060)
--- NOTE | 2017-02-04 04:11 | NUR ---
PT ARRIVED PN UNIT, VIA STRETCHER, PT IS ALERT AND ORIENTED, ON 2L NC WITH 98% O2 SAT. LUNGS CLEAR IN B\L UPPER LOBES, DIMINISHED IN B\L LOWER LOBES, S1S2, CM-SB, PATENT RIGHT WRIST PIV WITH NS INFUSING VIA PUMP, ABDOMEN IS SOFT AND ROUND WITH ACTIVE BS, ALL PPP, VSS, CALL LIGHT IN REACH
[2017-02-04] MEDS ORDERED: XARELTO20 MG PO (04:52)
[2017-02-04] MEDS ORDERED: BETAPACE 120 M120 MG PO (04:56)
--- NOTE | 2017-02-04 07:00 | NUR ---
ASSESSMENT COMPLETE PER FLOWSHEET. NO CO AT TIME.
--- NOTE | 2017-02-04 08:18 | NUR ---
OBTAINED PT RELEASE TO CONTACT [facility]-AND VERIFY MEDICATION LIST-RECIEVED AND REVIEWED WITH PT -UPDATED MED RECONCILIATION SHEET
[2017-02-04 09:31] LABS: APTT 34.2 SECONDS (22.8-39.4); INR 1.51 (0.85-1.17); PROTIME 18.1 SECONDS (11.6-15.0)
--- NOTE | 2017-02-04 12:00 | NUR ---
CONSENTS SIGNED FOR PERMANENT PACEMAKER PLACEMENT.
--- NOTE | 2017-02-04 14:45 | NUR ---
DR JIMÉNEZ SEEING PT.
--- NOTE | 2017-02-04 15:00 | NUR ---
TO OR VIA BED.
--- NOTE | 2017-02-04 17:15 | NUR ---
BACK TO ROOM NO CO AT TIME.
--- NOTE | 2017-02-04 19:10 | NUR ---
ASSESSMENT COMPLETED. SEE FLOW SHEET. LT ARM IN SLING WITH DRSG TO LT SHOULDER AREA C-D-I. O2 @ 6L VIA NC, WEANING. SR ON THE MONITOR. DENIES ANY PAIN OR NEEDS AT THIS TIME.
--- NOTE | 2017-02-04 19:30 | NUR ---
LINENS CHANGED, PT UP TO BSC, TOLLERATED WELL. SR ON THE MONITOR. DENIES ANY NEEDS AT THIS TIME.
--- NOTE | 2017-02-04 21:00 | NUR ---
NO VISITOR'S AT THIS TIME.
--- NOTE | 2017-02-04 23:27 | NUR ---
REASSESSMENT COMPLETED. SR ON THE MONITOR.
[2017-02-05] VITALS (15 sets, daily range): BP systolic 96–155; BP diastolic 58–93
--- NOTE | 2017-02-05 07:37 | NUR ---
NOTED HEART RATE UP TO 149, CALLED DR JIMÉNEZ FOR ANY ORDERS, NOTED HE HAD ORDERED FOR EKG AND THEN NURSE TO CONTACT PT ADDICTION PROFESSIONAL. OBTAINING EKG AT THIS TIME.
--- NOTE | 2017-02-05 07:43 | NUR ---
EKG OBTAINED, TEOFILO ESPINOSAD. WAITING FOR CALLBACK.
--- NOTE | 2017-02-05 08:00 | NUR ---
RECIEVED CALLBACK FROM DR RED, ORDERS RECIEVED.
--- NOTE | 2017-02-05 10:25 | HP ---
PATIENT: ABISAI ELY MEDICAL RECORD: [id number] ACCOUNT: [id number] LOCATION:[facility] [id number] : 53 ADMISSION DATE: 02/04/17 HISTORY AND PHYSICAL EXAMINATION DATE OF ADMISSION: 02/04/2017 DIAGNOSES: 1. Syncope. 2. Intermittent asystole. 3. Sick sinus syndrome. 4. Tachycardia-bradycardia syndrome. 5. Paroxysmal atrial fibrillation. 6. Coronary artery disease, status post recent PTCA stent. HISTORY OF PRESENT ILLNESS: Mrs. Ely presents with syncope. She was found to have intermittent asystole for up to over seconds. She has a history of atrial fibrillation. She has a history of coronary artery disease, status post recent PTCA stent. She has had no angina. She has no acute ST-T abnormalities on her EKG. Atrial fibrillation was treated with sotalol. The sotalol was increased due to continued atrial fibrillation and this resulted in the bradycardia and the asystole. PHYSICAL EXAMINATION: GENERAL APPEARANCE: Well-nourished, well-developed, appears stated age. Level of distress, comfortable. PSYCHIATRIC: Mental status, alert, normal affect. Orientation, oriented to time, place and person. EYES: Lids and conjunctiva, noninjected. No discharge, no pallor. ENT: Lips, teeth, gums, normal dentition. Oropharynx, no cyanosis, no pallor. NECK: Carotid arteries, bilateral normal upstroke, no bruits, no thrills. JUGULAR VEINS: No jugular venous pressure or distention. CERVICAL LYMPH NODES: Nontender, nonenlarged. THYROID: Not enlarged. Nontender. No nodules. LUNGS: Respiratory effort, unlabored. CHEST: Normal curvature. No thoracic deformity. No chest wall tenderness. Percussion, resonant. Auscultation, clear. No wheezes, no rales, no rhonchi. CARDIOVASCULAR: Precordial exam, nondisplaced. No heaves or pericardial thrills. Rate and rhythm, regular. Heart sounds, normal S1, normal S2. No S3, no gallop, no rub. Systolic murmur, not heard. Diastolic murmur, not heard. EXTREMITIES: No cyanosis, no edema. Peripheral pulses, full and equal in all extremities, except as noted. No bruits appreciated. ABDOMEN: Soft, nondistended. Normal aorta. No bruit. Nontender. No masses. Liver, nontender, no hepatomegaly. Spleen, nontender, no splenomegaly. MUSCULOSKELETAL: No joint tenderness. No joint swelling. No erythema. NEUROLOGICAL: Normal gait, normal strength, normal tone. SKIN: Warm and dry. REVIEW OF SYSTEMS: The patient reports easy bruising but reports no swollen glands. The patient reports no fever, no night sweats, no significant weight gain, no significant weight loss. No significant exercise tolerance. The patient reports no dry eyes, no irritation, no vision change. Patient reports no difficulty hearing and no ear pain. Patient reports no frequent nose bleeds or nose and sinus problems. Patient reports on arm pain on exertion. No shortness of breath while lying down. No history of heart murmur. Patient HISTORY AND PHYSICAL [id number] ABISAI ELY reports no cough, no wheezing or coughing up blood. Patient reports no abdominal pain, no vomiting. Normal appetite. No diarrhea and not vomiting blood. No nausea and no constipation. Patient reports no incontinence. No difficulty urinating. No hematuria. No increased frequency. Patient reports no muscle aches. No weakness, no arthralgias, no back pain. No swelling of the extremities. Patient reports no abnormal mole, no jaundice, no rashes. Reports no loss of consciousness. No weakness and no numbness. No seizures, dizziness, or headaches. The patient reports no depression, no sleep disturbance, feeling safe in a relationship and no alcohol abuse. Patient reports on fatigue. Reports no runny nose or sinus pressure. No itching, no hives, and no frequent sneezing. OVERALL IMPRESSION: She is sinus rhythm at this point. We will hold all AV-blocking medications and institute permanent pacemaker. After that, restart her sotalol. TRANSINT:[id number] Voice Confirmation ID: [id number] DOCUMENT ID: [id number] GORAN RED MD at 1025 CC: [id number] DICTATION DATE: 02/04/17 1124 HEALTH INSURANCE ASSESSOR: 02/04/17 1142 ADM IN [facility] [address] [place] [address]
--- NOTE | 2017-02-05 10:30 | NUR ---
DR RED ON FLOOR AT THIS TIME SEEING PT.
--- NOTE | 2017-02-05 11:28 | OP ---
PATIENT NAME: ABISAI ELY MEDICAL RECORD: [id number] :53 LOCATION:[facility] D.2306 ADMISSION DATE:02/04/17 SURGEON: ANABELLE JIMÉNEZ MD DATE OF OPERATION: 02/04/2017 SURGEON: Anabelle Jiménez MD ANESTHESIA: General endotracheal, Dr. Huerta and Dr. Newsome. OPERATION PERFORMED: Insertion of dual-chamber pacing system. PREOPERATIVE DIAGNOSES: Sick sinus syndrome, paroxysmal atrial fibrillation, profound bradycardia, and pauses greater than 10 seconds. POSTOPERATIVE DIAGNOSES: Sick sinus syndrome, paroxysmal atrial fibrillation, profound bradycardia, and pauses greater than 10 seconds. INDICATION FOR OPERATION: Profound bradycardia and greater than 10 seconds asystole. ESTIMATED BLOOD LOSS: Less than 5 cc. FINDINGS OF THE OPERATION: Pulse generator Medtronic model number A2DR01, serial number [id number]. Atrial lead Medtronic model number 4574-45, serial number [id number]. Ventricular lead model number 4074-52, serial number [id number]. LEAD ANALYSIS: Atrial lead threshold 0.2 volts, current lead threshold 0.6 milliamps, resistance 832 ohms, P-wave 5.2, slew rate 1.8. Ventricular lead threshold 0.4 volts, current lead threshold 0.8 milliamps, resistance 882 ohms, R-wave 18.2. DESCRIPTION OF PROCEDURE: After informed consent and adequate preoperative medication evaluation, the patient was brought to the operating room, placed on the table in the supine position. After induction of general endotracheal anesthesia and application of appropriate monitoring devices, the left chest and neck were prepped and draped in a sterile field, utilizing Betadine scrub, alcohol, and Betadine solution. A Betadine-impregnated drape was also used, 1% lidocaine was infiltrated in the left subclavicular space. Incision was made and dissection carried down the fascia. Hemostasis maintained with electrocautery. The subclavian vein was not accessed via puncture, therefore a cut down through the pectoralis major muscle was performed, the vein identified and a 6-0 Prolene placed. The introducers were placed through this Prolene pursestring. Leads positioned, secured, and tested. The above findings were noted. They were felt to be in good position and the leads were then secured to the muscle. Leads connected to the pulse generator and pacemaker placed in the pocket. Pacemaker fired, captured, and sensed appropriately. Pocket was irrigated. Instrument count and sponge count were correct times 2. Pocket was closed in layers utilizing 3-0 Vicryl on the deep subcutaneous tissue, 5-0 subcuticular Monocryl on the skin. Sterile dressings were applied. The patient tolerated the procedure well and was transferred to the ICU in satisfactory condition. TRANSINT:[id number] Voice Confirmation ID: [id number] DOCUMENT ID: [id number] OPERATIVE REPORT [id number] ABISAI ELY EDWARD MD at 1128 CC: [id number] DICTATION DATE: 02/04/17 172 SALES CONTRACT ADMINISTRATOR: 02/05/17 0041 ADM IN [place] [id number] [place] [address]
--- NOTE | 2017-02-05 12:14 | NUR ---
UP IN BED EATING LUNCH AT THIS TIME. DENEIS ANY NEEDS. WILL CONTINUE PLAN FO CARE.
[2017-02-05] MEDS ORDERED: BETAPACE160 MG PO (12:55)
--- NOTE | 2017-02-05 14:07 | NUR ---
NOTED ORDERS FOR PT TO BE DISCHARGED TODAY PER DR RED ORDERS. ALSO NOTED DR RED HAD STATED THAT THE DISCHARGE DEPENDED ON IF DR JIMÉNEZ WAS OKAY FOR PT TO BE DISCHARGED. SPOKE WITH DR JIMÉNEZ WHO STATED HE WAS OKAY FOR PT TO BE DISCHARGED HOME. DR JIMÉNEZ ALSO STATED HE WOULD HAVE HIS OFFICE CONTACT PT TO MAKE AN APPOINTMENT ON TuesdayFEBRUARY 07. PT ALSO HAS UPCOMING APPOINTMENT WITH DR RED ON FEBRUARY 17 AT 1020. AT THIS TIME DISCHARGE PAPERWORK GIVEN TO PT AND WAS SIGNED BY PT. TEACHING PAPERWORK GIVEN TO PT ALONG WITH HARD SCRIPT FROM DR RED FOR SOTALOL, AND PTS MANUAL FOR PACEMAKER, AND DISCHARGE PAPERWORK ALSO GIVEN TO PT. PT DENIES ANY QUESTIONS OR CONCERNS AND STATE UNDERSTANDING OF TEACHINGS. NO ACUTE DISTRESS NOTED. HEART RATE IN THE 60S SINUS. WILL CONTINUE PLAN OF CARE.
--- NOTE | 2017-02-05 14:57 | NUR ---
PT DISCHARGED HOME AT THIS TIME. LEFT VIA PERSONAL VEHICLE WITH FRIEND. LEFT WITH ALL PERSONAL ITEMS, DISCHARGE PAPERWORK, TEACHING PAPERWORK, UPCOMING APPOINTMENTS, HARD SCRIPT, AND PT MANUAL FOR PACEMAKER. DENIES ANY QUESTIONS OR CONCERNS. NO FURTHER ACTIONS.
--- NOTE | 2017-02-08 18:08 | DS ---
PATIENT:ABISAI ELY :53 MEDICAL RECORD: [id number] DISCHARGE SUMMARY ADMISSION DATE: 02/04/17 DISCHARGE DATE: 02/05/17 DISCHARGE DIAGNOSES: 1. Sick sinus syndrome. 2. Paroxysmal atrial fibrillation. 3. Symptomatic bradycardia. 4. Status post permanent pacemaker this admission. 5. Coronary artery disease. 6. Previous PTCA stent. HOSPITAL COURSE: Mrs. Ely presents with syncopal episodes secondary to symptomatic bradycardia, underwent permanent pacemaker, had no further bradycardic episode, did have continued paroxysmal atrial fibrillation. Her sotalol was increased to 160 mg b.i.d. Will follow up with [facility] within the next 2 weeks. TRANSINT:[id number] Voice Confirmation ID: [id number] DOCUMENT ID: [id number] GORAN RED MD at 1808 CC: [id number] DICTATION DATE: 02/05/17 1026 BURIAL AGENT: 02/05/17 2215 DIS IN 02/05/17 [facility] [address] [place] [address]
== END 2017-02-05 15:23 | disposition home or self-care (01) | DRG 244 ==
LOC: D.ER 01:46 → D.ICU 03:18
PROVIDERS: Emergency Medicine; Internal Medicine Cardiovascular Disease; ADMIT Internal Medicine Interventional Cardiology
PROC: 02H63JZ Insertion of Pacemaker Lead into Right Atrium, Percutaneous Approach (ICD-10-PCS; 2017-02-04)
PROC: 02HK3JZ Insertion of Pacemaker Lead into Right Ventricle, Percutaneous Approach (ICD-10-PCS; 2017-02-04)
PROC: 0JH606Z Insertion of Pacemaker, Dual Chamber into Chest Subcutaneous Tissue and Fascia, Open Approach (ICD-10-PCS; principal; 2017-02-04 16:15)
DX: I49.5 Sick sinus syndrome (principal); R55 Syncope and collapse; I48.0 Paroxysmal atrial fibrillation; I25.10 Atherosclerotic heart disease of native coronary artery without angina pectoris; Z95.5 Presence of coronary angioplasty implant and graft; Z86.74 Personal history of sudden cardiac arrest

== ENCOUNTER → 2017-10-20 08:34 | Outpatient (CLI) | payer MEDICARE, OTHER ==
[2017-02-04 04:16] VITALS: BMI 29.2
[~2017-10-20 08:34] MED LIST changes: +BETAPACE 120 M120 MG PO; +BETAPACE160 MG PO; +XARELTO20 MG PO
[2017-10-20 10:42] LABS: HELICOBACTER PYLORI IGG NEGATIVE (NEGATIVE)
== END | disposition home or self-care (01) ==
LOC: D.US 10-17 08:36
PROVIDERS: Family Medicine
DX: K21.9 Gastro-esophageal reflux disease without esophagitis (principal); R11.0 Nausea

== ENCOUNTER → 2017-11-10 08:29 | Outpatient (CLI) | payer MEDICARE, OTHER ==
[2017-02-04 04:16] VITALS: BMI 29.2
== END | disposition home or self-care (01) ==
LOC: D.MRI 08:29
DX: R93.8 Abnormal findings on diagnostic imaging of other specified body structures (principal); R10.13 Epigastric pain; R12 Heartburn; R11.2 Nausea with vomiting, unspecified; B96.81 Helicobacter pylori [H. pylori] as the cause of diseases classified elsewhere

== ENCOUNTER → 2017-12-06 07:59 | Outpatient (CLI) | payer MEDICARE, OTHER ==
[2017-02-04 04:16] VITALS: BMI 29.2
== END | disposition home or self-care (01) ==
LOC: D.MRI 07:59
DX: R93.8 Abnormal findings on diagnostic imaging of other specified body structures (principal); B96.81 Helicobacter pylori [H. pylori] as the cause of diseases classified elsewhere; R10.13 Epigastric pain; R12 Heartburn; R11.2 Nausea with vomiting, unspecified

== ENCOUNTER → 2018-01-03 10:55 | Outpatient (CLI) | payer MEDICARE, OTHER ==
[2017-02-04 04:16] VITALS: BMI 29.2
== END | disposition home or self-care (01) ==
LOC: D.NM 10:55
DX: R11.2 Nausea with vomiting, unspecified (principal); R10.13 Epigastric pain

== ENCOUNTER → 2018-01-12 09:00 | Outpatient (CLI) | payer MEDICARE, OTHER ==
[2017-02-04 04:16] VITALS: BMI 29.2
== END | disposition home or self-care (01) ==
LOC: D.NM 09:00
DX: R11.2 Nausea with vomiting, unspecified (principal); R10.13 Epigastric pain

== ENCOUNTER 2020-12-23 12:37 | Outpatient (CLI) | payer MEDICARE, OTHER ==
[2017-02-04 04:16] VITALS: BMI 29.2
== END 2020-12-23 23:59 | disposition home or self-care (01) ==
LOC: D.MAMMO 12:37
PROVIDERS: ATTEND Family Medicine
DX: Z12.31 Encounter for screening mammogram for malignant neoplasm of breast (principal)